=== PATIENT | male | born 1990 | race Two or more races ===

== ENCOUNTER 2022-08-12 18:39 | Emergency (ER) | payer SELFPAY ==
[~2022-08-12] VITALS: Ht 172.7 cm; Wt 77.1 kg
[2022-08-12] MEDS ORDERED: NALOXONE 2 MG/2 ML SYRINGE ONE (19:37)
[2022-08-12] MEDS ORDERED: NALOXONE HCL 0.4 MG/ML AMPUL IM ONE (19:45)
[2022-08-12 19:53] LABS: HEMATOCRIT 48.5 % (36.7-47.1); MEAN CORPUSCULAR HEMOGLOBIN 27.1 uug (23.8-33.4); MEAN CORPUSCULAR VOLUME 84.8 fL (73.0-96.2); PLATELET COUNT (AUTO) 200 K/uL (152-348)
[2022-08-12 20:05] LABS: CARBON DIOXIDE 19 mmol/L (21-32); CHLORIDE 102 mmol/L (98-107); CREATININE 1.5 mg/dL (0.6-1.3); GLUCOSE 180 mg/dL (74-106); POTASSIUM 3.7 mmol/L (3.5-5.1); UREA NITROGEN, BLOOD 20 mg/dL (7-18)
[2022-08-12 20:11] LABS: ALANINE AMINOTRANSFERASE 25 U/L (16-63); ALKALINE PHOSPHATASE 86 U/L (50-136); ASPARTATE AMINOTRANSFERASE 39 U/L (15-37); BILIRUBIN,DIRECT 0.2 mg/dL (0.0-0.2); BILIRUBIN,TOTAL 0.6 mg/dL (0.2-1.0); TOTAL PROTEIN, SERUM 8.8 g/dL (6.4-8.2)
[2022-08-12 20:13] LABS: ETHANOL < 3 MG/DL (0-0)
[2022-08-12 20:14] LABS: ACETAMINOPHEN < 2.0 ug/mL (10-30)
[2022-08-12] MEDS ORDERED: IV NS 1000 ML 1,000 ML IV ONE ×2 (21:00→21:45)
--- NOTE | 2022-08-12 21:05 | NUR ---
Pt provided urine sample, sent to lab.
[2022-08-12 21:13] LABS: *BILIRUBIN,URIN NEGATIVE (NEGATIVE); *BLOOD, URINE 2+ (NEGATIVE); *CLARITY,URINE CLEAR (CLEAR); *COLOR,URINE YELLOW (YELLOW); *KETONES,URINE NEGATIVE (NEGATIVE); LEUKOCYTE ESTERASE ,URINE NEGATIVE (NEGATIVE); NITRITE, URINE NEGATIVE (NEGATIVE); PH,URINE 5.5 (5.0-8.0); UGLUCOSE NEGATIVE (NEGATIVE)
[2022-08-12 21:27] LABS: *AMPHETAMINE, URINE POSITIVE (NEGATIVE); *CANNABINOID, URINE NEGATIVE (NEGATIVE); *COCCAINE, URINE NEGATIVE (NEGATIVE); *OPIATE, URINE POSITIVE (NEGATIVE); *PHENCYCLIDINE SCREEN,URINE NEGATIVE (NEGATIVE)
[2022-08-12] MEDS ORDERED: CEFTRIAXONE 1 G in IV DEXTROSE 5% 50 ML IV ONE (21:45)
[2022-08-12] MEDS ORDERED: AZITHROMYCIN IV 500 MG in IV DEXTROSE 5% 250 ML IV ONE (21:45)
[2022-08-12] MEDS ORDERED: AZITHROMYCIN 250 MG TABLET PO ONE (22:15)
[2022-08-12] MEDS ORDERED: CEFTRIAXONE 1 G VIAL IM ONE (22:15)
[2022-08-12] MEDS ORDERED: CEFTRIAXONE 1 G VIAL ONE (23:12)
[2022-08-12] MEDS ORDERED: LIDOCAINE HCL 1% 20 ML VIAL ONE (23:12)
[2022-08-12] MEDS ORDERED: AZITHROMYCIN 250 MG TABLET ONE (23:13)
[2022-08-12 23:41] LABS: BACTERIA,URINE FEW /HPF (NONE SEEN); RBC,URINE 0-3 /HPF (0-3); SQUAMOUS EPITHELIAL CELL,UR MODERATE /HPF (NONE SEEN); WBC,URINE 0-3 /HPF (0-3)
[2022-08-13] MEDS ORDERED: AZIT250T13 PO (00:41)
[2022-08-13] MEDS ORDERED: CEFU500T66 PO (00:41)
[2022-08-13] MEDS ORDERED: ALBU6.7H9 INH (00:41)
[2022-08-13 00:50] VITALS: BP 150/36
--- NOTE | 2022-08-13 00:50 | NUR ---
Patient discharged to home in stable condition. Written and verbal after care instructions given. Patient verbalizes understanding of instructions. Stressed follow up or return to ER for worsening s/s. Patient out of ER with steady gait, no acute signs of distress, VSS, all belongings taken, to be driven home by family via private vehicle.
== END 2022-08-13 00:51 | disposition home or self-care (01) ==
LOC: ER 18:39
DX: T40.601A Poisoning by unspecified narcotics, accidental (unintentional), initial encounter (principal); R06.81 Apnea, not elsewhere classified; F15.10 Other stimulant abuse, uncomplicated; Y92.89 Other specified places as the place of occurrence of the external cause; E86.0 Dehydration; J18.9 Pneumonia, unspecified organism; R94.31 Abnormal electrocardiogram [ECG] [EKG]; R00.0 Tachycardia, unspecified
CPT/HCPCS: 80076; 80048; 81001; 85025; 36415; 93005; 71045; 99285; 96372 ×2; 80299; 80320; 80307; J0696; J3490; J2310; A4663; G0480; J7040; Q0144